=== PATIENT | female | born 1960 ===

== ENCOUNTER 2018-08-15 05:38 | Day surgery (SDC) | payer SELFPAY ==
--- NOTE | 2018-08-14 18:38 | Pre-Procedure Note/Attestation ---
Pre-Procedure Note/Attestation Complete Prior to Procedure Planned Procedure: not applicable Procedure Narrative: Rhinoplasty Possible post auricular graft-right or left ear. Possible internal weir procedure.(bring nostrils closer together. Indications for Procedure Pre-Operative Diagnosis: Nasal deformity Attestation I attest that I discussed the nature of the procedure; its benefits; risks and complications; and alternatives (and the risks and benefits of such alternatives ), prior to the procedure, with the patient (or the patient's legal counter sales representative). I attest that, if there was a reasonable possibility of needing a blood transfusion, the patient (or the patient's legal counter sales representative) was given the [place] [facility] [employer] [facility] standardized written summary, pursuant to the [place] Blood Safety Act ([place] Health and Safety Code # 1645, as amended). I attest that I re-evaluated the patient just prior to the surgery and that there has been no change in the patient's H&P Marques Piña MD Aug 14, 2018 18:38
--- NOTE | 2018-08-14 18:41 | Brief Operative Note ---
Immediate Post Operative Note Operative Note Chief Complaint: Nasal deformity Pre-op Diagnosis: Nasal deformity Procedure: Rhinoplasty Possible post auricular graft-right or left ear. Possible internal weir procedure.(bring nostrils closer together. Post-op Diagnosis: same as pre-op Surgeon: Marques Piña MD Clam Bed Worker: none Additional Surgeons: none Anesthesiologist: Nurse Crum. Anesthesia: general Specimen: none Complications: none Condition: stable Fluids: D5LR Estimated Blood Loss: volume - 50 cc Drains: none Packing: Stamberger nasal gel Implant(s) used?: No Marques Piña MD Aug 14, 2018 18:41
--- NOTE | 2018-08-14 18:45 | Discharge Instructions ---
Discharge Instructions Discharge Instructions Follow up with: Dr. Pñia 08/22/18 11:45 AM Diet: regular Resume Normal Activity?: No Activity: light activity Pneumonia Vaccine: pt refused vaccine Return to Work/School on: Aug 28, 2018 Special Instructions Pt has printed instructions that we reviewed on 08/09/18 during her pre op visit. Post op Rx also given to pt on that day-[place] and Amox. For Surgical Patients May shower: No For Congestive Heart Failure Reminder Report to your physician any weight gain of 5 pounds or more in one week. Marques Piña MD Aug 14, 2018 18:45
--- NOTE | 2018-08-14 18:49 | General Progress Note ---
Progress Note Progress Note Dischagre note signed by mistake, will put in new progress note post surgery tomorrow. Marques Piña MD Aug 14, 2018 18:49
--- NOTE | 2018-08-14 20:00 | Pre-op HX & Phy Repo 2 SIG ---
DATE OF ADMISSION: 08/15/2018 DATE OF SURGERY: 08/15/2018 INDICATION FOR PROCEDURE: This is a 57-year-old female who is for revision rhinoplasty. PAST MEDICAL HISTORY: Significant for cardiovascular disease, depressive disorder, arthralgia of the temporomandibular joint, sensorineural hearing loss bilaterally. PAST SURGICAL HISTORY: Hysterectomy, , and knows by me 15 years ago with a nasal tip graft 4 years ago. She had a myocardial infarction 07/07/2018. She has been cleared by her seafood manager that paperwork was e-mailed to the hospital and I also will bring it. She takes supplements and vitamins and exercise for preventative care. MEDICATIONS: At the moment are atenolol, atorvastatin, Cymbalta, lorazepam, trazodone. ALLERGIES: No known drug allergies. PERSONAL HISTORY: , one child. Denies alcohol and drugs. Never was a smoker. She does accounting. Her nutrition status is omnivore- low red meat. FAMILY MEDICAL HISTORY: History of dementia and diabetes mellitus. PHYSICAL EXAMINATION: VITAL SIGNS: She is 5 feet 4 inches, 140 pounds. BMI 24.03. Blood pressure actually when I last saw her, which was 08/09/2018 was 120/80, temperature 98.4, pulse rate 75, respiratory rate 13. HEENT: Head normocephalic. Eyes, PERRLA. EOMI. Nose, nose is wide. She has some scar tissue from previous surgery and then hit her nose. LUNGS: Clear to A and P. HEART: Normal S1, S2. No murmur, bruit, gallop, or rub. GENITOURINARY: Not done. It is done by her private physician. There is no reason for me to do it. It is not pertinent for this procedure. EXTREMITIES: Grossly normal. NEUROLOGIC: Cranial nerves II through XII grossly intact. She denies issues with taste and smell difficulty. ASSESSMENT: She is a candidate for revision rhinoplasty and possible postauricular graft with upper columella. We decided to make that decision at the time of surgery. PLAN: As above. The patient has been cleared by surgery as I noted before by her seafood manager and I have that paperwork if it is not already in her chart. Marques Piña M.D. DR: Jose JOB#: [id number] CC: SHARON
[~2018-08-15] VITALS: Ht 162.6 cm; Wt 65.3 kg
[2018-08-15] VITALS (12 sets, daily range): BP systolic 105–127; BP diastolic 68–85
[~2018-08-15 05:38] MED LIST: AMOXICILLIN500 M1 PO; NORCO 5-325 TA1 EACH ORAL
[2018-08-15] MEDS ORDERED: Sterile Water Irrig 1000ml IRRIG ONE (07:00)
[2018-08-15] MEDS ORDERED: LR 1000ml ONE (07:00)
[2018-08-15] MEDS ORDERED: NS Irrig 1000ml ONE (07:00)
[2018-08-15] MEDS ORDERED: fentaNYL 100 mcg/2 mL IV ONE (07:01)
[2018-08-15] MEDS ORDERED: Midazolam 2mg/2ml Inj ONE (07:01)
[2018-08-15] MEDS ORDERED: Cocaine HCl 4% 4ml vial TOPIC ONE (07:06)
[2018-08-15] MEDS ORDERED: Bupivacaine w/Epi 0.5% 30ml Vial INJ ONE (07:07)
[2018-08-15] MEDS ORDERED: Lidocaine 1% 10mg/ml/Epi 0.005mg/ml 30ml vial INJ ONE (07:07)
[2018-08-15] MEDS ORDERED: Succinylcholine 20mg/ml 10ml vial ONE (07:08)
[2018-08-15] MEDS ORDERED: Metoclopramide 10mg/2ml Inj IVP PRN ×2 (07:15→09:00)
[2018-08-15] MEDS ORDERED: Hydromorphone 0.5mg/0.5ml inj IVP PRN (07:15)
[2018-08-15] MEDS ORDERED: ceFAZolin sod 1 GM in D5W 55 ML IV ONE (07:15)
[2018-08-15] MEDS ORDERED: fentaNYL 100 mcg/2 mL IV PRN (07:15)
[2018-08-15] MEDS ORDERED: Dexamethasone 4mg/ml vial IVP ONE (07:30)
[2018-08-15] MEDS ORDERED: Propofol 200mg/20ml IV ONE (08:17)
[2018-08-15] MEDS ORDERED: Phenylephrine 10mg/ml Vial ONE (08:17)
[2018-08-15] MEDS ORDERED: Metoclopramide 10mg/2ml Inj ONE (08:17)
[2018-08-15] MEDS ORDERED: Dexamethasone 4mg/ml vial ONE (08:17)
[2018-08-15] MEDS ORDERED: Lidocaine 1% MPF 10mg/ml 5ml ONE (08:17)
--- NOTE | 2018-08-15 08:26 | Anethesia Preoperative Eval ---
Anesthesia Pre-op PMH/ROS General Date of Evaluation: Aug 15, 2018 Time of Evaluation: 07:00 Anesthesiologist: jose ASA Score: ASA 2 Mallampati Score Class I : Soft palate, uvula, fauces, pillars visible Class II: Soft palate, uvula, fauces visible Class III: Soft palate, base of uvula visible Class IV: Only hard plate visible Mallampati Classification: Class II Anesthesia History: PONV Family History: no anesthesia problems Allergies: Coded Allergies: No Known Allergies (Unverified , 08/14/18) Medications: see eMAR Patient NPO?: Yes NPO Date: Aug 14, 2018 NPO Time: 23:59 Past Medical History Cardiovascular: Reports: HTN, CAD, NC Pulmonary: Denies: asthma, COPD, ALVARO, other Gastrointestinal/Genitourinary: Reports: GERD; Denies: CRI, ESRD, other Neurologic/Psychiatric: Denies: dementia, CVA, depression/anxiety, TIA, other Endocrine: Denies: DM, hypothyroidism, steroids, other HEENT: Denies: cataract (L), cataract (R), glaucoma, POARCH (L), POARCH (R), other Hematology/Immune: Denies: anemia, DVT, bleeding disorder, other Musculoskeletal/Integumentary: Denies: OA, RA, DJD, DDD, edema, other PSxH Narrative: rhinoplasty Anesthesia Pre-op Phys. Exam Physician Exam Last Vital Signs Date Time Temp Pulse Resp B/P (MAP) Pulse Ox O2 Delivery O2 Flow Rate FiO2 08/15/18 06:25 97.5 61 20 127/85 99 Room Air Constitutional: NAD Neurologic: CN 2-12 intact Cardiovascular: RRR Respiratory: CTA Gastrointestinal: S/NT/ND Airway Exam Mallampati Classification 2 Mallampati Score: Class II Neck: normal ROM: full Teeth: other - chipped front incisor Anesthesia Pre-op A/P Studies Pre-op Studies: EKG - sr Risk Assessment & Plan Plan: general LMA Status Change Before Surgery: No Pre-Antibiotics Drug: ancef Given Within 1 Hr of Incision: Yes Time Given: 07:30 Elvira Gilmore CRNA Aug 15, 2018 08:25
[2018-08-15] MEDS ORDERED: Bacitracin Oint 15gm Tube TOPIC ONE (08:48)
[2018-08-15] MEDS ORDERED: Norco 5mg/325mg tab ORAL PRN (09:00)
[2018-08-15] MEDS ORDERED: HYDROmorphone 1mg/ml Carpuject SUBQ PRN (09:00)
--- NOTE | 2018-08-15 10:32 | 48 Hour Post Anesthesia Eval ---
Post Anesthesia Evaluation Procedure: nasal ORIF Date of Evaluation: Aug 15, 2018 Time of Evaluation: 10:32 Blood Pressure Systolic: 117 0: 72 Pulse Rate: 67 Respiratory Rate: 14 Temperature (Fahrenheit): 98.0 O2 Sat by Pulse Oximetry: 98 Airway: patent Nausea: No Vomiting: No Hydration Status: adequate Cardiopulmonary Status: stable Mental Status/LOC: patient returned to baseline Follow-up Care/Observations: na Post-Anesthesia Complications: none Follow-up care needed: N/A Elvira Gilmore CRNA Aug 15, 2018 10:32
--- NOTE | 2018-08-15 10:34 | Immediate Post-Op Evaluation ---
Immediate Post-Op Evalulation Immediate Post-Op Evalulation Procedure: nasal ORIF Date of Evaluation: Aug 15, 2018 Time of Evaluation: 08:50 IV Fluids: 700 Blood Products: 0 Estimated Blood Loss: 50 Blood Pressure Systolic: 110 Blood Pressure Diastolic: 74 Pulse Rate: 94 Respiratory Rate: 14 O2 Sat by Pulse Oximetry: 98 Temperature (Fahrenheit): 97.4 Pain Score (1-10): 0 Nausea: No Vomiting: No Complications none Patient Status: awake, reacts, patent Hydration Status: adequate Drug: ancef Given Within 1 Hr of Incision: Yes Time Given: 07:30 Elvira Gilmore CRNA Aug 15, 2018 10:34
--- NOTE | 2018-08-15 18:15 | Operative Note - Dictated ---
DATE OF OPERATION: 08/15/2018 SURGEON: Marques Piña M.D. MOTOR VEHICLE COMPLIANCE ANALYST: None. ANESTHESIOLOGIST: Nurse practitioner anesthesia under supervision of the anesthesia department. ANESTHESIA: LMA general as well as 20 mL 50:50 mixture 1% lidocaine, 1:100,000 epinephrine and Marcaine 0.5% with 1:200,000 epinephrine total of 18 mL. INDICATION FOR PROCEDURE: Repair of nasal deformity. POSTOPERATIVE DIAGNOSIS: Repair of nasal deformity. FINDINGS: Repair of nasal deformity. PROCEDURE: Revision rhinoplasty utilizing a postauricular graft from behind the left ear. TECHNIQUE: The patient was prepped and draped in usual manner. Time-out was performed. All agreed as the equipment and procedure to be done. Antibiotic and Decadron had been given preop. Initially I made an incision in between the cartilage with a #15 blade on either side. A stab incision inside lower lateral of either nostril and then a small stab incision between the columella and the lower inferior aspect of Kiesselbach's plexus cartilage. I then proceeded to elevate over the nose with an Elton forceps and then use a straight guarded osteotome to make medial osteotomy and then a low lateral osteotomy. Nose was pushed back into position and thinner. I then used the coblation into shrink the inferior turbinate setting of 6, 10 seconds x2 after coating with ointment x2. Outfractured with a Boies elevator. I had already taken the graft from behind the left ear and closed that with 5-0 horizontal mattress Prolene. This graft was then cut to size and placed to elevate the columella. I then proceeded to use a Danny needle with a 4-0 Mersilene for an internal wear taking it from the floor of the right nostril across to lateral naris on the left to bringing it back all the way through subcutaneously to the right lateral nares and then bringing it back in at that point to the original opening in the floor of the right nostril by the columella. This was then tied to desired position. Then the skin over it was closed with a 4-0 plain suture as well as the incision in the columella. I then placed Stammberger nasal gel in either nostril with total of 1 syringe. I then proceeded to place skin prep, tape and cast on the nose. Mustache dressing was placed. ESTIMATED BLOOD LOSS: 50 mL. COMPLICATIONS: None. DRAINS: None. COUNTS: Sponge and needle count was concurred by all in the room and was correct. The patient was awake and alert, and stable and breathing on her own prior to transfer to the recovery room from the operating room. She also was stable in the operating room. Marques Piña M.D. DR: Jose JOB#: [id number] CC:
== END 2018-08-15 10:50 | disposition home or self-care (01) ==
LOC: SUR 05:38
DX: M95.0 Acquired deformity of nose (principal); I25.10 Atherosclerotic heart disease of native coronary artery without angina pectoris; I25.2 Old myocardial infarction; F32.9 Major depressive disorder, single episode, unspecified; K21.9 Gastro-esophageal reflux disease without esophagitis; M26.629 Arthralgia of temporomandibular joint, unspecified side; H90.5 Unspecified sensorineural hearing loss; Z90.710 Acquired absence of both cervix and uterus; Z79.899 Other long term (current) drug therapy
CPT/HCPCS: 20926; 30435; J0330; J0690; J1100; J2250; J2370; J2405; J2704; J2765; J3010; 94003; 94150